=== PATIENT | female | born 1925 | race African-American/Black ===

== ENCOUNTER 2016-06-29 14:13 | Emergency (ER) | payer MEDICARE, OTHER ==
[~2016-06-29] VITALS: Ht 162.6 cm; Wt 73.0 kg
[2016-06-29] MEDS ORDERED: ACETAMINOPHEN 325MG TABLET PO ONE (16:30)
[2016-06-29 19:45] VITALS: BP 148/78
== END 2016-06-29 20:11 | disposition home or self-care (01) ==
LOC: ER 15:15
DX: R07.89 Other chest pain (principal); E11.9 Type 2 diabetes mellitus without complications; Z88.0 Allergy status to penicillin; Z98.62 Peripheral vascular angioplasty status; Z82.49 Family history of ischemic heart disease and other diseases of the circulatory system
CPT/HCPCS: 70450; 71250; 99284